=== PATIENT | male | born 1985 | race Two or more races ===

== ENCOUNTER 2020-08-29 09:29 | Emergency (ER) | payer MEDICAID, OTHER ==
[~2020-08-29] VITALS: Ht 180.3 cm; Wt 99.8 kg
[2020-08-29 10:06] VITALS: BP 150/94
[2020-08-29] MEDS ORDERED: ACETAMINOPHEN 500 MG TAB PO ONE (10:30)
== END 2020-08-29 12:08 | disposition left against medical advice (07) ==
LOC: ER 09:29
DX: S02.85XA Fracture of orbit, unspecified, initial encounter for closed fracture (principal); S00.83XA Contusion of other part of head, initial encounter; W22.8XXA Striking against or struck by other objects, initial encounter; Y93.89 Activity, other specified; Y92.89 Other specified places as the place of occurrence of the external cause; Y99.8 Other external cause status
CPT/HCPCS: 70486